=== PATIENT | male | born 2000 ===

== ENCOUNTER 2022-01-23 09:16 | Emergency (ER) | payer OTHER ==
[~2022-01-23] VITALS: Ht 177.8 cm; Wt 81.7 kg
== END 2022-01-23 12:23 | disposition home or self-care (01) ==
LOC: ER 09:16
DX: S61.011A Laceration without foreign body of right thumb without damage to nail, initial encounter (principal); R20.2 Paresthesia of skin; W27.8XXA Contact with other nonpowered hand tool, initial encounter; Y99.0 Civilian activity done for income or pay; Z23 Encounter for immunization
CPT/HCPCS: 73120; 90714